=== PATIENT | female | born 1970 | race Caucasian/White ===

== ENCOUNTER 2016-06-22 20:22 | Emergency (ER) | payer OTHER ==
[~2016-06-22] VITALS: Ht 154.9 cm; Wt 98.2 kg
[~2016-06-22 20:22] MED LIST: ACET-1890 PO; GABA-502 PO; IBUP400T22 PO
[2016-06-22 20:25] VITALS: BP 148/103; PULSE 98; RESP 16; O2SAT 100
[2016-06-22 20:55] VITALS: BP 146/89; PULSE 98; RESP 16; O2SAT 100
[2016-06-22 21:03] LABS: BASOPHILS % (AUTO) 0.3 % (0-3); MONOCYTES % (AUTO) 6.6 % (4-12); Mean Corpuscular Hemoglobin 30.6 pg (27.0-35.0); Mean Corpuscular Volume 92.2 fL (81-100); NEUTROPHILS % (AUTO) 59.5 % (40-74); Platelet Count 196 bil/L (150-400)
--- NOTE | 2016-06-22 21:14 | ED.REPORT ---
HPI-Dyspnea / Wheezing Date of Service Jun 22, 2016 ED Provider: Dr. Troy Sykes M.D. A 45 year old female with a medical history including Factor V Leiden, peripheral neuropathy, and DVT (2013) previously on Xarelto presents to the ED with left-sided chest pain onset three days ago, worsening today while swimming. The pain is localized under her left breast and is described as "pressure" and "tingling." The patient also reports left breast pressure, imbalance, dizziness, and intermittent left arm pain/tingling. She denies rash, shortness of breath, or other symptoms. The patient stopped taking Xarelto last year. Nursing Notes Stated Complaint: CHEST PAIN LEFT BREAST PAIN Chief Complaint: Chest Pain Nursing Notes Reviewed: Yes Allergies: Coded Allergies: amitriptyline (Verified Allergy, Severe, hallucinations, 12/31/14) Penicillins (Verified Allergy, Unknown, 12/31/14) Reported as childhood allergy cyclobenzaprine (Verified Adverse Reaction, Severe, Hallucinations, ) tramadol (Verified Adverse Reaction, Severe, Nausea,Vomiting, 12/31/14) naproxen (Verified Adverse Reaction, Intermediate, Nausea, 12/31/14) Scheduled Gabapentin (Gabapentin) 300 Mg Capsule 300 MG PO prn Scheduled PRN Acetaminophen (Tylenol) 325 Mg Tablet 650 MG PO PRN PRN PRN For Pain Ibuprofen (Ibuprofen) 400 Mg Tablet 400 MG PO QID PRN PRN For Pain General Time Seen by MD: 21:13 Chief Complaint Chest pain Hx Obtained From: Patient Arrived By: Walk-in Sudden in Onset?: Yes Onset Occurred: 3 days ago (Worsening today) Symptom Duration: Since onset Location: : Chest left Quality: Painful ("Tingling"), Pressure Severity: Current: Moderate Severity: Maximum: Moderate Associated with: Denies: Fever Pertinent Negative: Relieved by nothing Recent Healthcare: No recent doctor visit Past Medical History Past Medical History Notes: 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 Factor V Leiden, both of the patient's children. Smoking History Current Every Day Smoker Social History Alcohol Use: Denies alcohol use Ambulatory Status Independent Review of Systems Review of Systems Note: + Left breast pressure, imbalance Constitutional: Denies: Fever Respiratory: Denies: Non-productive cough, Shortness of breath Cardiovascular: Reports: Chest pain (Left-Sided) Musculoskeletal: Reports: Extremity pain (and tingling) Complete sys rev & neg: except as marked. GI: Denies: Diarrhea, Vomiting Neurologic: Reports: Dizziness Physical Exam Physical Exam Notes: Initial Vital Signs Vital Signs (First) Date Time Temp Pulse Resp B/P Pulse Ox O2 Delivery O2 Flow Rate FiO2 06/22/16 20:25 36.8 98 16 148/103 100 Room Air Initial VS: Reviewed, Vital signs abnormal Head / Eyes: Atraumatic, Normocephalic ENT: Conjunctiva normal, No scleral icterus Abdomen / GI: Soft, Non-tender Skin: Warm, Dry, No cyanosis Neurologic: Alert, Oriented, Nonfocal Psychiatric: Mood/affect normal, Behavior normal, Normal thought content General/Constitutional: Awake, Alert, No acute distress, Well hydrated Appearance / Presentation: Positive: Obese Neck: Supple, Full range of motion Respiratory / Chest: Breath sounds NL (Good air movement), Breath sounds = bilat, No respiratory distress Chest Wall / Ribs: Positive: Costochond cart tender L (Just below left breast) Breast: Negative: Mass L, Mass R Left breast with diffuse feeling of fullness and tenderness Inverted left nipple (chronic condition) which everts on exam Cardiovascular: Regular rhythm, Heart sounds NL Heart Rate / Rhythm: Positive: Tachycardia (Mild) Interpretation & Diagnostics Lab Results Interpretation Result Diagram: 06/22/16204906/22/162049 Test 06/22/16 20:50 White Blood Count 15.3th/mm3 (3.8-10.1) Red Blood Count 4.74mil/mm3 (3.90-5.20) Hemoglobin 14.5g/dL (12.0-15.6) Hematocrit 43.7% (35.0-46.0) Mean Corpuscular Volume 92.2fL (81-100) Mean Corpuscular Hemoglobin 30.6pg (27.0-35.0) Mean Corpuscular Hemoglobin Concent 33.2% (32.0-37.0) Red Cell Distribution Width 12.9% (12.3-15.4) Platelet Count 196bil/L (150-400) Neutrophils (%) (Auto) 59.5% (40-74) Lymphocytes (%) (Auto) 32.4% (14-46) Monocytes (%) (Auto) 6.6% (4-12) Eosinophils (%) (Auto) 1.0% (0-5) Basophils (%) (Auto) 0.3% (0-3) D-Dimer < 0.50mg/L FEU (<0.50) Sodium Level 137mEq/L (134-144) Potassium Level 4.1mEq/L (3.5-5.2) Chloride Level 102mEq/L (97-108) Carbon Dioxide Level 19mmol/L (18-29) Blood Urea Nitrogen 19mg/dL (6-24) Creatinine 0.87mg/dL (0.57-1.00) Estimat Glomerular Filtration Rate 102mL/min (>59) Glucose Level 96mg/dL (60-99) Calcium Level 8.9mg/dL (8.5-10.1) Magnesium Level 2.1mg/dL (1.6-2.6) Total Bilirubin 0.2mg/dL (0.0-1.2) Aspartate Amino Transf (AST/SGOT) 15U/L (0-50) Alanine Aminotransferase (ALT/SGPT) 18U/L (0-32) Alkaline Phosphatase 64U/L (25-150) Troponin T < 0.010ug/L (0.0-0.011) Total Protein 7.0g/dL (6.4-8.4) Albumin 3.9g/dL (3.4-5.0) Hold Franz Top Tube Received (Received) Lab Results Interpretation: Elevated white count of uncertain etiology ECG Interpretation ECG Interpretation: Sinus tachycardia rate 100 Otherwise normal Time: 20:43 Interpreted by: ED physician X-Ray Chest Interpretation Chest Xray Interpretation: IMPRESSION: No acute cardiopulmonary findings. Dictated by: Betty Contreras M.D. on 06/22/2016 at 21:19 View: Portable, 1 view Interpretation / Wet Read by: Interpret - Radiologist Re-Eval/Medical Decision Med Decision/Clinical Course 45-year-old female with left anterior chest wall tenderness. She actively swims and that seems to make the pain worse. She has a history of DVT and factor V Leiden. Troponin, EKG, and dimer are all negative. I am not suspicious as this is due to serious cardiac or lung disease. Source of Hx: Old records Re-Evaluation/Progress : Time of Eval: 22:29 Patient Status: Condition improved Re-Evaluation/Progress Note: Patient rechecked. Breast exam performed with a insurance claims analyst present. Discussed with patient lab and x-ray results, diagnosis, and plan for discharge. Follow-up and return to the ER instructions given. Patient agrees with plan for care and all questions were addressed. Counseled Regarding: Diagnosis, Lab results, Need for follow-up, When/why to return to ED Discharge & Departure Impression: Primary Impression: Costochondritis Disposition: Home Discharge Condition All VS Reviewed: Yes Condition: Improved Patient Instructions: Costochondritis (ED) Additional Instructions: Thank you for entrusting us with your care. Your x-ray, EKG, and lab results, including the blood clot blood test, were not concerning for any life- threatening illnesses today. The pain seems to be from inflammation of the costochondral joints (rib joints). Avoid activities that exacerbate your pain. Ibuprofen 400-600 mg 3 times daily as needed for pain. This will reduce the inflammation of the joints. Follow-up with your doctor if you have persistent pain or breast symptoms. Return to the ER with any new or worsening symptoms. Referrals: Penelope Walker MD (PCP) Scribe Attestation Portions of this note were transcribed by Milagro Baxter. I, Dr. Sykes, personally performed the history, physical exam, and medical decision-making; I reviewed and confirmed the accuracy of the information in the transcribed note. Signed by: Bernabe Johnson, 06/22/2016, 23:03 copies to: Penelope Walker MD, Howard L MD Jun 22, 2016 21:14 MILAGRO BAXTER Jun 22, 2016 21:22
--- NOTE | 2016-06-22 21:21 | DRSVH ---
PROCEDURE: X-RAY CHEST ONE VIEW, PORTABLE ([id number]) INDICATIONS: chest pain TECHNIQUE: One view of the chest was acquired. COMPARISON: [facility], CR, CHEST 2VW, 09/17/2013, 23:28. FINDINGS: Surgical changes and devices: None. Lungs and pleura: No pleural effusions or pneumothorax. Lungs are clear. Mediastinum: Mediastinal contours appear normal. Heart size is normal. Bones and chest wall: No suspicious bony lesions. Overlying soft tissues appear unremarkable. IMPRESSION: No acute cardiopulmonary findings. Dictated by: Betty Contreras M.D. on 06/22/2016 at 21:19 Approved by: Betty Contreras M.D. on 06/22/2016 at 21:20
[2016-06-22 21:26] LABS: TROPONIN T < 0.010 ug/L (0.0-0.011)
[2016-06-22 21:37] LABS: Magnesium 2.1 mg/dL (1.6-2.6)
[2016-06-22 22:28] VITALS: BP 109/56; PULSE 68; RESP 14; O2SAT 99
== END 2016-06-22 22:54 | disposition home or self-care (01) ==
LOC: SED 20:22
DX: M94.0 Chondrocostal junction syndrome [Tietze] (principal); D68.51 Activated protein C resistance; G90.09 Other idiopathic peripheral autonomic neuropathy; F17.200 Nicotine dependence, unspecified, uncomplicated; Z86.718 Personal history of other venous thrombosis and embolism; Z88.0 Allergy status to penicillin; Z88.5 Allergy status to narcotic agent; Z88.8 Allergy status to other drugs, medicaments and biological substances